=== PATIENT | female | born 1975 | race Caucasian/White ===

== ENCOUNTER → 2016-03-01 | Outpatient (CLI) | payer BC ==
[2016-03-01 18:47] VITALS: BP 142/90
--- NOTE | 2016-03-01 18:47 | Urgent Care T Sheet Gen (E) ---
Intake General Temperature (Fahrenheit): 99.1 Pulse: 91 Blood Pressure Systolic: 142 Blood Pressure Diastolic: 90 Respirations: 20 SPO2: 99 Chief Complaint: Sore Throat Description of Symptoms Started with sore throat Saturday. Today has felt more feverish as the day has progressed. Does have a lot of sinus drainage and maxillary sinus pressure. No cough. Took Ibuprofen yesterday, but none today. History of Present Illness Allergies: Coded Allergies: No Known Drug Allergies (Unverified , 03/01/16) Home Meds No Active Prescriptions or Reported Meds Respiratory Constitutional Symptoms: No Fever EENTM: Nose Congestion Throat pain Respiratory: No Cough All Other Systems Reviewed Remaining Systems: All other systems reviewed with negative findings Physical Exam Physical Exam General Appearance: WD/WN No apparent distress Eyes, Ears, Nose, Throat Ex: TMs normal Pharynx normal Other (Nares pink, boggy, clear drainage. Tender with palpation to maxillary and frontal sinuses) Neck Exam: Non tender Full range of motion Supple Respiratory Exam: Lungs clear Normal breath sounds No respiratory distress Cardiovascular Exam: Regular rate, rhythm Skin Exam: Normal color Warm/dry/intact Progress/Orders Lab Results Labs Results: Rapid Strep (Negative) Departure Urgent Care Impression Chief Complaint: Sore Throat Impression: Primary Impression: Acute URI Departure Disposition: 01 HOME OR SELF-CARE Condition: Stable Referrals: Jayna Linda MD (PCP) Additional Instructions: Encouraged fluids, rest, Mucinex, and saline sinus irrigation. Return or f/u with PCP if symptoms not improving or worse. Scripts No Active Prescriptions or Reported Meds End of report . EDY KIRAN [employer] Mar 01, 2016 18:47
== END ==
LOC: MHUC 18:28
PROVIDERS: ATTEND Nurse Practitioner Family
DX: J06.9 Acute upper respiratory infection, unspecified (principal)
CPT/HCPCS: 87880; 99213